=== PATIENT | male | born 1970 | race Native Hawaiian/Other Pacific Islander ===

== ENCOUNTER 2018-01-15 07:34 | Emergency (ER) | payer BC ==
[~2018-01-15] VITALS: Ht 185.4 cm; Wt 89.4 kg
[2018-01-15 07:41] VITALS: TEMP 97.9
[2018-01-15] MEDS ORDERED: PRINIVIL10 MG PO (07:47)
[2018-01-15 09:04] LABS: POTASSIUM 4.5 mmol/L (3.6-5.2)
[2018-01-15 09:55] VITALS: BP 118/74
== END 2018-01-15 09:55 | disposition home or self-care (01) ==
LOC: ED 07:34
PROVIDERS: Family Medicine
DX: M79.672 Pain in left foot (principal); M10.9 Gout, unspecified
CPT/HCPCS: 80053; 84550; 99283

== ENCOUNTER 2020-03-17 11:36 | Emergency (ER) | payer BC, OTHER ==
[~2020-03-17] VITALS: Ht 185.4 cm; Wt 85.7 kg
[~2020-03-17 11:36] MED LIST: PRINIVIL10 MG PO
[2020-03-17 12:12] VITALS: TEMP 99.8
[2020-03-17 12:58] LABS: PLATELET COUNT 206 K/uL (142-355)
[2020-03-17 13:07] LABS: POTASSIUM 4.4 mmol/L (3.6-5.2); SODIUM 136 mmol/L (136-145)
[2020-03-17 14:30] VITALS: BP 117/77
== END 2020-03-17 16:25 | disposition home or self-care (01) ==
LOC: ED 11:36
PROVIDERS: Emergency Medicine Emergency Medical Services
DX: U07.1 COVID-19 (principal); J20.8 Acute bronchitis due to other specified organisms; E86.0 Dehydration
CPT/HCPCS: 80048; 81000; 83735; 84484; 85027; 93005; 96360; 96365; 96375; 99284; J2405